=== PATIENT | male | born 1970 | race Caucasian/White ===

== ENCOUNTER → 2023-12-04 10:07 | Outpatient (REF) | payer BC, SELFPAY | LOC: DHCBC HW 10:07 | PROVIDERS: ATTENDING PHYSICIAN Internal Medicine Cardiovascular Disease; FAMILY PHYSICIAN Family Medicine | DX: I25.5 Ischemic cardiomyopathy (principal) | CPT/HCPCS: 93306 ==

== ENCOUNTER → 2024-05-11 07:52 | Outpatient (REF) | payer BC, SELFPAY | LOC: HWRAD 07:52 | PROVIDERS: ATTENDING PHYSICIAN Student in an Organized Health Care Education/Training Program | DX: R19.09 Other intra-abdominal and pelvic swelling, mass and lump (principal) | CPT/HCPCS: 76882 ==

== ENCOUNTER 2024-07-08 06:10 | Day surgery (SDC) | payer BC, SELFPAY ==
[2024-07-08] VITALS (10 sets, daily range): BP systolic 127–140; BP diastolic 79–92; BMI 31.2
[2024-07-08] MEDS: TYLENOL 1000 MG PO (06:40)
--- NOTE | 2024-07-08 07:22 | W.SUR.PREOP ---
Pre-Operative Surgical Note
-
I have examined this patient prior to the performance of the scheduled procedure.
The patient's condition is unchanged from the time of the current History and
Physical and the patient is able to undergo the scheduled procedure.
--- NOTE | 2024-07-08 07:22 | HP.FOC2 ---
Focused History & Physical
Chief Complaint
HPI:
Chief Complaint:
Right inguinal hernia
HPI / Indication for Planned Procedure:
Robotic right inguinal hernia repair with mesh.
Relevant Past Medical History: Coronary Artery Disease
Relevant Social History: Negative
Relevant Family History: Negative
Relevant Past Surgical History: Negative
Review of Systems
Review of Pertinent Systems: All Systems Negative
Medication
See Medication form for detailed medications: Yes
Medication List (including Herbals & OTC):
atorvastatin 40 mg tablet (Lipitor) 40 mg PO DAILY High cholesterol 08/06/17
carvedilol 6.25 mg tablet 6.25 mg PO BID Heart disease/condition 08/06/17
lisinopril 2.5 mg tablet 2.5 mg PO DAILY Blood pressure 08/06/17
ascorbic acid 1,000 [id number] powder effervescent pack (Emergen-C) 1 ea PO DAILY 07/06/24
aspirin 81 mg capsule 81 mg PO DAILY 07/06/24
multivitamin 1 tab PO DAILY 07/06/24
Medications Reviewed: Yes
Allergies and Reactions
Patient has Allergies: Yes
Noted Allergies and Reactions:
Allergy/AdvReac Type Severity Reaction Status Date / Time
codeine Allergy childhood Verified 07/08/24 06:25
hives
Penicillins Allergy childhood Verified 07/08/24 06:25
hives
Pertinent Physical Exam
All Other Systems: Negative
Head/Neck: Normal
Diagnosis / Assessment
This is a 53-year-old male with a symptomatic right inguinal hernia.
Plan / Procedure
Will plan for a robotic right inguinal hernia repair with mesh
Anesthesia/Sedation to be done by Anesthesia Provider: Yes
--- NOTE | 2024-07-08 09:04 | W.IMMPOSTOP ---
Surgical Immed Post Op Note
-
Primary Surgeon: Alexander Hankins MD
Assisting Surgeon: None
Pre-op Diagnosis: Right inguinal hernia
Post-op Diagnosis: Same
Procedure Performed: Robotic right inguinal hernia repair with mesh
Anesthesia Type: General
Specimen / Cultures: None
Estimated Blood Loss: 3 cc
Complications: None
Operative Findings: Small right indirect inguinal hernia containing fat primarily from the medial umbilical ligament. Critical view of the MPO obtained and reinforced with a large right Bard 3D max mid weight polypropylene uncoated mesh.
POST OP PLAN:
Will DC home today after voiding with a ice pack.
--- NOTE | 2024-07-08 09:05 | OR.RPT ---
Operative Report
Operative Report
Patient Name: Rashid Martinez
: 1970
Date of Operation: 07/08/2024
Preoperative Diagnosis: Reducible Inguinal hernia, right
Postoperative Diagnosis: Same
Procedure(s):
Robotic right inguinal Hernia Repair with mesh, (DORI approach)
Surgeon(s):
Dr. Hankins
Receiver Dispatcher(s):
PEEWEE Adam
Anesthesia: General
Estimated Blood Loss: 3 cc
Urine Output: None
Drains/Lines/Implants: Large 3D Max Bard mid weight uncoated polypropylene mesh
Specimens: None
Indication for surgery: The patient has a history of groin pain and noted on exam to have a right inguinal Hernia. Following review of therapeutic options they have elected to undergo a minimally invasive repair.
Operative Findings: Small right indirect inguinal hernia containing fat primarily from the medial umbilical ligament. Critical view of the MPO obtained and reinforced with a large right Bard 3D max mid weight polypropylene uncoated mesh. No direct
or femoral defects. No cord lipoma. No defect noted on the contralateral side.
Details of the operation:
The patient was brought to the Operating Room and placed in the supine position with the arms tucked. IV antibiotics were infused and Venodyne stockings placed. Following uneventful induction of general endotracheal anesthesia, an orogastric tube
were placed. The abdomen was prepped and draped in the usual sterile fashion. The abdomen was entered using a Veress technique which required 1 pass, pneumoperitoneum to 15 mmHg was obtained without difficulty. An 8mm trochar was passed through
the abdominal wall roughly 20 cm cephalad to the inguinal canal. We then confirmed that no inadvertent injury was made while passing the trocar or Veress needle. We then placed two additional 8 mm ports in the left upper and right upper quadrants.
We then docked the robot with a Prograsper in the left hand port and monopolar scissors in the right. A right indirect inguinal hernia containing no intra-abdominal contents was readily identified. There was no defect noted on the contralateral
side. We then began by creating a flap at the level of the ASIS laterally working our way medially to the medial umbilical fold. Staying onto the peritoneum we were able to circumferentially dissect around the hernia sac and and peel it off of the
underlying spermatic cord and testicular vessels, taking care to preserve them. Medially we identified the midline pubis as well as Glenn's ligament and ensured to dissect 2 cm below the pubic rim over the bladder. After exposure of the entire
myopectineal orifice we identified and reduced: A small sized indirect inguinal hernia, no direct inguinal hernia, no femoral hernia, and no cord lipoma. Of note, the peritoneum was very thin but no rents were made.
We then fixated a large 3D max mesh with a 2-0 Vicryl stitch at coopers medially and superior laterally. The flap was then closed with a running 2-0 barbed monocryl suture ensuring that the tail was cut flush with the medial fat pad so that no
barbs were exposed. During the closure of the flap an Angiocath was inserted and 20 cc of quarter percent Marcaine was instilled. The area in the flap cavity was then evacuated of air confirming that the mesh was flush and there were no folds. All
needles and instruments were then removed and the robot was undocked. The abdomen was then desufflated, and pneumoperitoneum evacuated. All skin sites were then closed with 4-0 Monocryl followed by Dermabond. Counts were correct and overall, the
patient tolerated the procedure well and was taken to the Recovery Room postoperatively in stable condition.
Katarzyna was the attending physician and performed the procedure with assistance of the PA above. The assistance of PEEWEE Adam was required due to the complexity of the procedure. During the procedure Delma assisted with port placement, instrument and
needle exchanges, and closure of the wound. I was present for all portions of the case, excluding skin closure.
Alexander Hankins MD
[2024-07-08] MEDS: MOTRIN 600 MG PO (11:00)
== END 2024-07-08 11:43 | disposition home or self-care (01) ==
LOC: SDS 06:10
PROVIDERS: ATTENDING PHYSICIAN Surgery
DX: R10.30 Lower abdominal pain, unspecified (principal); K40.90 Unilateral inguinal hernia, without obstruction or gangrene, not specified as recurrent
CPT/HCPCS: 49650; 87070; C1781

== ENCOUNTER 2025-08-22 09:25 | Emergency (ER) | payer BC, SELFPAY ==
[2025-08-22 09:28] VITALS: BP 150/93
--- NOTE | 2025-08-22 10:24 | ED.MUSCINJ ---
HPI-Injury
General
Chief Complaint: Musculo-Skeletal Complaint
Source: patient
Exam Limitations: none
Time Seen by Provider: 08/22/25 10:23
Nursing documentation reviewed up to this point in time: agreed with
History of Present Illness-Injury
Initial Injury comments:
54-year-old male with history of cardiomyopathy, CAD, HTN, HLD, [place] with stent 2011 presents complaints of worsening left lower back pain which radiates through the buttocks and down out hip and thigh to the knee. This pain started about 10 days to
two weeks ago, initially thought to be due to a back strain following yard work/raking leaves and decorating for holiday. The pain was mild initially but worsened significantly over the next 5 days. He states pain most severe going from sit to stand
and vice versa, taking steps initially after standing describing the pain as 'fairly unbearable.' Relief is noted when lying down. Associated symptoms include numbness in the leg down to the knee experienced this morning, but no numbness in the
saddle area, no loss of bowel or bladder control, no abdominal pain, and no recent trauma. The patient has been taking Ibuprofen, cyclobenzaprine and prednisone but reported the symptoms continue to worsen. His primary care physician ordered an
X-ray of the lumbar spine about a week ago but it was not yet completed.
Pt had blood work last week showing no significant abnormality
Past History
Past History
ED Past Medical History: CAD, HTN, Hypercholesterolemia and [place]
ED Past Surgical History: Cardiac and Orthopedic
Social History
Tobacco: Former smoker
Alcohol: Occasional
Personal: Single
Living: with family (Lives with daughter)
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
Family History
Family History: Other
Review of Systems
Review of Systems
Allergies reviewed?: Yes
All Other Systems: ROS reviewed and negative except as documented in HPI and ROS
Constitutional: Denies fever
ABD/GI: Denies abdominal pain
: Denies incontinence or difficulty voiding
Musculoskeletal: Reports back pain
Skin: Reports no symptoms
Neurological: Denies weakness
Phy Exam
Physical Exam
Physical Exam:
GENERAL: No acute distress. A&Ox3.
CONSTITUTIONAL: Afebrile.
RESPIRATORY: Regular respirations, nonlabored, lungs clear.
CARDIOVASCULAR: Regular rate and rhythm, no murmurs, no rubs.
GI: Soft, nontender, normal BS
MUSCULOSKELETAL: No spinal bony tenderness. Obvious discomfort with moving. Right SLR with no worsening of symptoms. Left SLR aggravates symptoms. Well perfused.
SKIN: Warm, dry, pink
PSYCH: Normal mood and affect. Well kept, interactive and appropriate
NEUROLOGIC: Awake, alert and oriented. No focal neurological deficits. Strength 5/5 bilaterally. Patellar reflexes equal. Ambulates well but slowly.
Injury Course
Orders/Labs/Results
Orders:
Orders
08/22/25 10:35
Lumbar Spine, 2 or 3 View [CR Lumbar Spine 2 Or 3 Views] Urgent
Comment:
Reason For Exam: left sciatica
08/22/25 12:20
Ketorolac [Toradol] 30 mg IM NOW STA
MDM/Problems Addressed
Differential Diagnosis Includes:
back strain, sciatica, DJD, spinal stenosis, herniated disc,
MDM/Problems Addressed:
54-year-old male with history of cardiomyopathy, CAD, HTN, HLD, [place] with stent 2011 presents complaints of worsening left lower back pain which radiates through the buttocks and down out hip and thigh to the knee. This pain started about 10 days to
two weeks ago, initially thought to be due to a back strain following yard work/raking leaves and decorating for holiday. The pain was mild initially but worsened significantly over the next 5 days. He states pain most severe going from sit to stand
and vice versa, taking steps initially after standing describing the pain as 'fairly unbearable.' Relief is noted when lying down. Associated symptoms include numbness in the leg down to the knee experienced this morning, but no numbness in the
saddle area, no loss of bowel or bladder control, no abdominal pain, and no recent trauma. The patient has been taking Ibuprofen, cyclobenzaprine and prednisone but reported the symptoms continue to worsen. His primary care physician ordered an
X-ray of the lumbar spine about a week ago but it was not yet completed.
Pt had blood work last week showing no significant abnormality
Afebrile, NAD
Abdomen benign
No infectious symptoms
No neuro deficits/cauda equina
11:30 AM:
LS-spine x-ray initially read by this examiner, no significant abnormality noted, moderate amount of stool throuhout bowel.
Patient was given 40 mg daily of prednisone x 4 days which did not help.
I will give him a longer steroid taper as well as Toradol as needed for pain, and Tramadol for worse pain, prescriptions sent to his pharmacy
He will follow-up with his PCP if no improvement within the next 7 to 10 days
*Pulse Oximetry
SaO2: 98
Oxygen Mode of Delivery: Room air
Patient hypoxic: not evaluated
*Critical Care Note
Total Time (30-74mins, 75-104mins- exclusive of procedures): Not Applicable
ED Attending Note
-
Portions of this chart may have been created with voice recognition software.� Occasional wrong word or��sound alike� substitutions may have occurred due to the inherent limitations of voice recognition software.
Discharge Plan
Departure
Patient Disposition: Home (Routine Discharge)
Patient with high blood pressure during this ER visit?: No
Condition: Fair
Discharge Problem:
Low back pain radiating to left leg, Constipation
Instructions: Tramadol, Low back pain - ED (DC), Sciatica - ED (DC)
Prescriptions:
New
ketorolac 10 mg tablet
10 mg PO Q8H PRN (Reason: pain) 1 Days Qty: 20 0RF
tramadol 50 mg tablet
50 mg PO BID PRN (Reason: Pain) Qty: 10 0RF
prednisone 10 mg Tablet
See Rx Instructions .ROUTE .COMPLEX Qty: 30 0RF
Rx Instructions:
Take By Mouth:
40 mg daily x3 days, 30 mg daily x3 days,
20 mg daily x3 days, 10 mg daily x3 days.
No Action
atorvastatin [Lipitor] 40 MG tablet
40 mg PO DAILY
carvedilol 6.25 MG tablet
6.25 mg PO BID
lisinopril 2.5 MG tablet
2.5 mg PO DAILY
multivitamin Tablet
1 tab PO DAILY
Emergen-C 1,000 mg Powder Effervescent In Packet
1 ea PO DAILY
aspirin 81 mg Capsule
81 mg PO DAILY
acetaminophen [acetaminophen] 325 mg tablet
650 mg PO Q6HPRN PRN (Reason: mild pain) Qty: 14 0RF
ibuprofen 600 mg tablet
600 mg PO Q6H PRN (Reason: pain) Qty: 14 0RF
Referrals:
Nilesh Jenkins, DO [Family Provider, Family Practice] - As needed
Activity Restrictions/Additional Instructions:
As we discussed, Nothing worrisome on your spine xray
There is a LOT of stool in your abdomen, I have provided you with instruction for constipation.
I sent a prescription to your pharmacy for a steroid taper and also for Toradol to take for mild to moderate pain. While you are taking the Toradol do not take ibuprofen as they are both the same type of drug.
I sent a prescription to your pharmacy for Tramadol (narcotic pain medication) to use for more severe pain.
Do not mix up the two pain medications.
Do not drive or operate any machinery within 8 hours of taking the tramadol as it can make you sleepy and slow the reflexes.
If you are not improving within the next week, you MAY need Physical Therapy and/or further imaging and your doctor would have to order that.
Interventions
Interventions:
*General Assessment Last Done: 08/22/25 11:30
*Neglect/Abuse Screening Last Done: 08/22/25 09:29
*ED COVID-19 Vaccine History Last Done: 08/22/25 11:30
*ED Influenza Vaccine History Last Done: 08/22/25 11:30
*Risk Screen - Suicide (C-SSRS) Last Done: 08/22/25 09:29
*Nursing Disposition Last Done: 08/22/25 13:09
ED-Musculoskeletal Assessment Last Done: 08/22/25 11:30
Discharge Date and Time
Discharge Date/Time: 08/22/25 13:12
Print Language: TURKISH
[2025-08-22] MEDS: TORADOL 30 MG IM (12:47)
== END 2025-08-22 13:12 | disposition home or self-care (01) ==
LOC: EMR 09:25
PROVIDERS: EMERGENCY PHYSICIAN Student in an Organized Health Care Education/Training Program; FAMILY PHYSICIAN Student in an Organized Health Care Education/Training Program
DX: M54.50 Low back pain, unspecified (principal); K59.00 Constipation, unspecified; I25.10 Atherosclerotic heart disease of native coronary artery without angina pectoris; I25.2 Old myocardial infarction; I10 Essential (primary) hypertension; E78.00 Pure hypercholesterolemia, unspecified; I42.9 Cardiomyopathy, unspecified; Z79.52 Long term (current) use of systemic steroids; Z87.891 Personal history of nicotine dependence
CPT/HCPCS: 99283; 96372; 72100

== ENCOUNTER → 2025-09-05 07:32 | Outpatient (REF) | payer BC, SELFPAY | LOC: MRI 07:32 | PROVIDERS: ATTENDING PHYSICIAN Student in an Organized Health Care Education/Training Program | DX: M54.41 Lumbago with sciatica, right side (principal); M54.42 Lumbago with sciatica, left side | CPT/HCPCS: 72148 ==